=== PATIENT | male | born 1965 | race Caucasian/White ===

== ENCOUNTER 2020-11-03 17:24 | Emergency (ER) | payer OTHER ==
[~2020-11-03] VITALS: Ht 190.5 cm; Wt 104.3 kg
[2020-11-03] MEDS ORDERED: ELIQUIS5 MG PO (20:01)
[2020-11-03] MEDS ORDERED: PERINDOPRIL ERBU4 MG PO (20:05)
[2020-11-03 20:07] VITALS: BP 138/63
[2020-11-03] MEDS ORDERED: ATENOLOL25 MG PO (20:08)
[2020-11-03] MEDS ORDERED: FUROSEMIDE40 MG PO (20:09)
[2020-11-03] MEDS ORDERED: LISINOPRIL5 MG PO (20:46)
== END 2020-11-03 20:24 | disposition home or self-care (01) ==
LOC: FSED 17:32
DX: R07.89 Other chest pain (principal); F41.8 Other specified anxiety disorders; I48.91 Unspecified atrial fibrillation; Z76.0 Encounter for issue of repeat prescription; F17.210 Nicotine dependence, cigarettes, uncomplicated
CPT/HCPCS: 71046; 80053; 82553; 84484; 85025; 85610; 93005; 99284